=== PATIENT | female | born 1945 | race Caucasian/White ===

== ENCOUNTER → 2017-12-05 13:49 | Outpatient (CLI) | payer MEDICARE, SELFPAY ==
--- NOTE | 2017-12-05 13:52 | RAD_ITS ---
STUDY: X-RAY - LEFT SHOULDER REASON FOR EXAM: Atkinson a pop moving an object. TECHNIQUE: 3 view(s) of the shoulder. COMPARISON: Radiographs 09/07/2016. FINDINGS: There is osteopenia. Normal glenohumeral articulation. Normal acromioclavicular joint. Normal acromion. Normal humeral head and visualized proximal humerus. The soft tissue structures are unremarkable. Normal visualized pulmonary apex. RAD/Shoulder min 2 Views IMPRESSION: Osteopenia. Otherwise, unremarkable x-ray examination of the left shoulder. Electronically Signed: Ravindra Yin MD at 15:14 EST Tel , Service support ,
== END ==
PROVIDERS: Family Provider Family Medicine Geriatric Medicine; PCP Family Medicine Geriatric Medicine; Visit Provider Orthopaedic Surgery
DX: M25.512 Pain in left shoulder (principal)
CPT/HCPCS: 73030

== ENCOUNTER → 2017-12-19 13:01 | Outpatient (CLI) | payer MEDICARE, SELFPAY ==
--- NOTE | 2017-12-19 13:12 | MRI_ITS ---
STUDY: MRI LEFT SHOULDER REASON FOR EXAM: Inability to lift arm, felt a pop 1 year ago. TECHNIQUE: Standardized fat and water weighted pulse sequences were obtained in all 3 orthogonal planes. COMPARISON: Radiographs 12/05/2017. FINDINGS: There is a full-thickness tear of the supraspinatus tendon retracted approximately 3.7 cm to the level of the glenoid (T2 coronal images 9-14). Normal infraspinatus tendon. There is mild tendinosis of the subscapularis tendon (T2 axial image 14) without discrete tendon tear. Normal teres minor tendon. There is mild atrophy with mild partial fat replacement of the supraspinatus and infraspinatus muscles (T2 sagittal images 3-8). Normal subscapularis muscle. Normal teres minor muscle. There is mild glenohumeral arthrosis with mild chondral thinning (T2 axial images 11, 12). There is a glenohumeral joint effusion with synovitis (T2 coronal images 5-9). Normal humeral head and visualized proximal humerus. There is a tear with nonvisualization of the intracapsular long biceps tendon. Normal labrum. There is acromioclavicular arthrosis with mild hypertrophic changes (T2 sagittal images 8, 9). There is a Type II morphology (curved), with a neutral orientation. There is subacromial-subdeltoid bursal fluid. There is thickening of the coracoacromial ligament (T2 sagittal image 11). Normal deltoid muscle. Normal trapezius muscle. MRI/Upper Ext Joint Only(Routine) IMPRESSION: Full-thickness tear of the supraspinatus tendon. Mild subscapularis tendinosis. Mild atrophy of the supraspinatus and infraspinatus muscles. Tear of the long biceps tendon. Mild glenohumeral arthrosis. Acromioclavicular arthrosis. Thickening of the coracoacromial ligament. Glenohumeral joint fluid communicating with the subacromial-subdeltoid bursa. Electronically Signed: Ravindra Yin MD at 14:52 EST Tel , Service support ,
== END ==
PROVIDERS: Family Provider Family Medicine Geriatric Medicine; PCP Family Medicine Geriatric Medicine; Visit Provider Orthopaedic Surgery
DX: M75.102 Unspecified rotator cuff tear or rupture of left shoulder, not specified as traumatic (principal); M19.012 Primary osteoarthritis, left shoulder
CPT/HCPCS: 73221